=== PATIENT | female | born 1945 | race African-American/Black ===

== ENCOUNTER 2025-10-21 12:44 | Emergency (ER) | payer OTHER, MEDICAID ==
[~2025-10-21] VITALS: Ht 157.5 cm; Wt 64.0 kg
[~2025-10-21 12:44] MED LIST: ALBU2.5V13 NEB; ALBU90AE IH; AMLO1CAP2 PO; ASPI-1497 PO; ATOR10TA PO; MELO-106 PO; MIRT-89 PO; MONT-46 PO; NAPR-679 PO
[2025-10-21 12:46] VITALS: O2SAT 99
[2025-10-21] MEDS ORDERED: LIDO454G TP (14:00)
[2025-10-21] MEDS ORDERED: LIDO170S TP (14:00)
[2025-10-21] MEDS ORDERED: DIPH50CA42 MT (14:00)
[2025-10-21] MEDS ORDERED: CETI10CA2 MT (14:02)
[2025-10-21 14:10] VITALS: BP 157/80; PULSE 81; RESP 18; TEMP 36.7; O2SAT 99
== END 2025-10-21 14:11 | disposition home or self-care (01) ==
LOC: ER 12:44
DX: T20.45XA Corrosion of unspecified degree of scalp [any part], initial encounter (principal); T30.4 Corrosion of unspecified body region, unspecified degree; J44.89 Other specified chronic obstructive pulmonary disease; Z79.1 Long term (current) use of non-steroidal anti-inflammatories (NSAID); Z79.82 Long term (current) use of aspirin; Z79.899 Other long term (current) drug therapy; Z90.89 Acquired absence of other organs
CPT/HCPCS: 99282